=== PATIENT | male | born 1955 | race Caucasian/White ===

== ENCOUNTER 2018-03-01 10:02 | Day surgery (SDC) | payer OTHER ==
[2018-02-28 16:33] LABS: BASOPHILS # (AUTO) 0.1 K/uL (0.0-0.2); BASOPHILS % (AUTO) 0.8 % (0.0-2.0); EOSINOPHILS # (AUTO) 0.5 K/uL (0.0-0.4); EOSINOPHILS % (AUTO) 5.8 % (0.0-4.0); HEMATOCRIT 40.3 % (36-54); HEMOGLOBIN 13.3 g/dL (14.0-18.0); LYMPHOCYTES % (AUTO) 20.7 % (20.5-51.5); MEAN CORPUSCULAR HEMOGLOBIN 30 pg (27-31); MEAN CORPUSCULAR HGB CONC 33 % (32-36); MEAN CORPUSCULAR VOLUME 90 fL (79.0-98.0); MONOCYTES # (AUTO) 0.5 K/uL (0.0-1.0); MONOCYTES % (AUTO) 5.4 % (1.7-9.3); NEUTROPHILS # (AUTO) 6.4 K/uL (1.8-7.7); NEUTROPHILS % (AUTO) 67.3 % (40.0-70.0); PLATELET COUNT (AUTO) 269 K/uL (130-430); RED BLOOD CELL COUNT(AUTO) 4.47 MIL/uL (4.2-6.2); RED CELL DISTRIBUTION WIDTH 13.2 % (9.0-15.0); WHITE BLOOD COUNT (AUTO) 9.5 K/uL (4.8-10.8)
[2018-02-28 16:44] LABS: CALCIUM 8.8 mg/dL (8.4-11.0); CREATININE 0.87 mg/dL (0.55-1.30); POTASSIUM 4.2 mmol/L (3.5-5.1)
[2018-02-28 16:54] LABS: BILIRUBIN,URINE NEGATIVE (NEGATIVE); BLOOD, URINE NEGATIVE (NEGATIVE); CLARITY/URINE CLEAR (CLEAR); COLOR,URINE YELLOW (YELLOW); GLUCOSE,URINE 2+ (NEGATIVE); KETONES,URINE NEGATIVE (NEGATIVE); LEUKOCYTE ESTERASE ,URINE NEGATIVE (NEGATIVE); NITRITE, URINE NEGATIVE (NEGATIVE); PH,URINE 5.5 (5.0-8.0); PROTEIN URINE NEGATIVE (NEGATIVE); UROBILINOGEN,URINE 0.2 (0.2-1.0)
[2018-02-28 16:55] LABS: PROTHROMBIN TIME 9.8 SECS (9.5-12.5)
[2018-02-28 17:15] LABS: BACTERIA,URINE RARE /HPF (None Seen); RBC,URINE 0-3 /HPF (0-3); WBC,URINE NONE SEEN /HPF (0-3)
[~2018-03-01] VITALS: Ht 167.6 cm; Wt 68.0 kg
[2018-03-01] MEDS ORDERED: INSULIN REGULAR, HUMAN 10 UNITS/0.1 ML INJ IV ONE (10:30)
[2018-03-01] MEDS ORDERED: ROCURONIUM BROMIDE 10 MG/ML (ZEMURON) IV ONE (10:30)
[2018-03-01] MEDS ORDERED: NEOSTIGMINE METHYLSULFATE 1 MG/ML, 10 ML VIAL IVP ONE (10:30)
[2018-03-01] MEDS ORDERED: GLYCOPYRROLATE 0.2 MG/ML VIAL IJ ONE (10:30)
[2018-03-01] MEDS ORDERED: DEXAMETHASONE SOD PHOSPHATE 4 MG/ML VIAL IVP ONE (10:30)
[2018-03-01] MEDS ORDERED: LR 1,000 ML IV.SOLN IV ONE (10:30)
[2018-03-01] MEDS ORDERED: SEVOFLURANE 15 MIN GAS INH ONE (10:30)
[2018-03-01] MEDS ORDERED: MIDAZOLAM HCL 5 MG/5 ML VIAL IVP ONE (10:30)
[2018-03-01] MEDS ORDERED: PROPOFOL 200MG/ 20ML VIAL (DIPRIVAN) IV ONE (10:30)
[2018-03-01] MEDS ORDERED: KETOROLAC TROMETHAMINE 30 MG VIAL IVP ONE (10:30)
[2018-03-01] MEDS ORDERED: fentaNYL CITRATE 250 MCG/5 ML AMP IV ONE (11:30)
[2018-03-01] MEDS ORDERED: LR 1,000 ML IV SCH (12:25)
[2018-03-01] MEDS ORDERED: MEPERIDINE HCL/PF 25 MG/ML DISP.SYRIN IVP PRN (12:30)
[2018-03-01] MEDS ORDERED: MORPHINE 4 MG/ML INJ. SYRINGE IVP PRN ×2 (12:30)
[2018-03-01] MEDS ORDERED: MORPHINE SULFATE 10 MG/ML VIAL IVP PRN (12:30)
[2018-03-01] MEDS ORDERED: MORPHINE 4 MG/ML INJ. SYRINGE ONE (13:13)
[2018-03-01] MEDS ORDERED: MEPERIDINE HCL/PF 50 MG/ML AMP ONE (13:45)
[2018-03-01 15:15] VITALS: BP_SYST 133
== END 2018-03-01 15:00 | disposition home or self-care (01) ==
LOC: SDS 10:02 → SMU 10:03 → SDS 15:00
PROVIDERS: ATTEND Orthopaedic Surgery
DX: S52.502A Unspecified fracture of the lower end of left radius, initial encounter for closed fracture (principal); S52.602A Unspecified fracture of lower end of left ulna, initial encounter for closed fracture; W18.30XA Fall on same level, unspecified, initial encounter; Y93.9 Activity, unspecified; Y92.89 Other specified places as the place of occurrence of the external cause; Y99.9 Unspecified external cause status; Z88.0 Allergy status to penicillin; Z98.890 Other specified postprocedural states; Z87.891 Personal history of nicotine dependence; E11.9 Type 2 diabetes mellitus without complications; Z79.84 Long term (current) use of oral hypoglycemic drugs; Z79.899 Other long term (current) drug therapy; G89.29 Other chronic pain
CPT/HCPCS: 25606; 25651; 36415; 71046; 76000; 80048; 81000; 82948; 82962; 85025; 85610; 85730; 93005; C1713; J1100; J1815; J1885; J2175; J2250; J2270; J2704; J2710; J3010; J3490; J7120